=== PATIENT | female | born 1930 | race Caucasian/White ===

== ENCOUNTER 2019-09-08 11:15 | Emergency (ER) | payer MEDICARE, OTHER ==
--- OUTSIDE RECORDS SUMMARY | 2019-09-08 11:29 | XMS REPORT | Continuity of Care Document ---
:1930 External Reference #:[id number] Author Name Ernestine Elkins MD Address [address] [place] [address] Care Team Providers Name Role Phone Sun Varela MD - Family Medicine Care Team Information Communications Executive Ernestine Elkins MD - Family Medicine Care Team Information Communications Executive [phone] Problems Active Problems Provider Date [place] Onset: 04/11/2015 Congestion of nasal sinus Onset: 11/23/2014 Hyperlipidemia Onset: 06/17/2016 Benign essential hypertension Onset: 06/17/2016 Unspecified open-angle glaucoma, severe stage Ernestine Elkins MD Onset: 06/17 Legal blindness [facility] Ernestine Elkins MD Onset: 06/17/2016 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 Ernestine Elkins MD Onset: Thrombocytopenic disorder Ernestine Elkins MD Onset: 10/21/2016 Osteochondropathy Ernestine Elkins MD Onset: 10/21/2016 Pure hypercholesterolemia Ernestine Elkins MD Onset: 04/20/2017 Constipation Ernestine Elkins MD Onset: 04/20/2017 Multiple closed fractures of pelvis with Ernestine Elkins MD Onset: 10/23/2017 disruption of pelvic [place] Social History Type Date Description Comments Sex Unknown Tobacco Use Start: Unknown Never Smoked Cigarettes ETOH Use Currently consumes 1 DR/WK alcohol socially Tobacco Use Start: Unknown Patient denies history of smoking Recreational Drug Use Denies Drug Use Smoking Status Reviewed: 07/17/19 Patient denies history of smoking Enjoy Exercising Patient enjoys Is going to start exercising exercising more. Had inpatient rehab for broken left side of pelvis for almost a month. States she is feeling great now and will try to keep up her exercise program. Allergies, Adverse Reactions, Alerts Active Allergies Reaction Severity Comments Date Propafenone metallic taste 11/14/2018 Inactive Allergies NKDA 04/13/2015 Medications Active Medications SIG Qnty Indications Ordering Date Provider Furosemide take one tablet in 30tabs Ernestine Elkins, 01/14/2019 40mg am as needed for MD Tablets increased fluid retention. Osteo Bi-Flex 2 PO qd Ernestine Elkins, 07/18/2018 Advanced Triple MD Strength Tablets Mag-SR Plus Calcium 1 PO qd Ernestine Elkins, 07/18/2018 64-106mg Tablets Vitamin B12 1 by mouth once a 100tabs Ernestine Elkins, 07/18/2018 1000mcg day MD Tablets ER Preservision Areds 1 cap 2x/day in in 120caps Ernestine Elkins, 07/18/2018 the morning and at MD Capsules bedtime Atorvastatin Calcium take 1 tablet by 90tabs Ernestine Elkins, 06/06/2016 mouth Daily AT MD 10mg Tablets Supper For Cholesterol 5 days a week. Alphagan P 1 gtt both eyes Unknown 0.1% tid Solution Travatan Z instill 1 drop in 2.5units [place], 0.004% each eye every MD Marilee Solution evening Prednisolone Acetate 1 drop right eye 5ml Jodi Crenshaw, four times daily , OD 1% Suspension Amlodipine take 1 capsule by 90caps Ernestine Elknis, Besylate/Benazepril mouth once daily MD Hydrochloride 5-10mg Capsules Eliquis 1 tab by mouth 60tabs Kamini Sauer 2.5mg Tablets twice daily Gina, MSN, COMMUNITY NUTRITION EDUCATOR Vitamin D-3 3 by mouth every Unknown 1000Unit day Capsules Timolol Maleate morning and night Unknown 0.5% both eyes Solution Immunizations CPT Code Status Date Vaccine Lot # [id number] Given 05/18/2016 Influenza Virus Vaccine Split Virus Use For Individual 3Yr Older Q2038 Given 05/29/2015 Influenza Vaccine (Fluzone) Age 3 And Older 65205 Given 05/29/2015 Pneumococcal Conjugate Vaccine 13 Valent For Intramuscular Use Q2036 Given 06/20/2014 Influenza Vaccine 3 Years Of Age Or Older (Flulaval) Q2038 Given 05/13/2013 Influenza Vaccine (Fluzone) Age 3 And Older 36570 Given 05/13/2013 Pneumovax Injection Q2038 Given 05/04/2012 Influenza Vaccine (Fluzone) Age 3 And Older 46367 Given 05/04/2012 Zoster Vaccine Live Injection 21882 Given 07/07/2011 Td Preservative Free For Use In Individuals 7 Yrs Or Older 99197 Given 06/09/2011 flu vaccination 86342 Given 06/24/2010 flu vaccination 12261 Given 06/13/2009 flu vaccination 48938 Given 07/01/2008 flu vaccination 13526 Given 07/05/2007 flu vaccination 86791 Given 06/12/2006 flu vaccination 30868 Given 07/07/2005 Pneumovax Injection 84602 Given 07/07/2005 flu vaccination 75739 Given 01/11/2001 Tetnus Injection Vital Signs Date Vital Result Comment 07/17/2019 1:28pm BP Systolic Sitting Left Arm 128 mmHg BP Diastolic Sitting Left Arm 74 mmHg Body Temperature 98.6 F Heart Rate 74 /min Respiratory Rate 18 /min Height 64.5 inches 5'4.50" Weight 200.00 lb BMI (Body Mass Index) 33.8 kg/m2 BSA (Body Surface Area) 1.97 m2 [place] body weight in kilograms 56 kg O2 % BldC Oximetry 95 % 05/13/2019 10:34am BP Systolic 134 mmHg BP Diastolic 79 mmHg Body Temperature 98.8 F Heart Rate 70 /min Height 64.5 inches 5'4.50" Weight 199.00 lb BMI (Body Mass Index) 33.6 kg/m2 BSA (Body Surface Area) 1.96 m2 [place] body weight in kilograms 56 kg O2 % BldC Oximetry 97 % Results Test Acquired Date Facility Test Result H/L Range Note Urine Dipstick 07/17/2019 [facility] Leuko - Negative Ua Nitrite - Negative Ua Urobilinogen .2 0.2 - 1.0 E.U./dL Ua Protein - Negative Ua PH 6 Low 6.5-7.5 Ua Blood - Negative Ua Specific [place] 1.020 1.010-1.030 Ua Ketones - Negative Ua Bilirubin - Negative Ua Glucose - Negative Procedures Date Code Description Status 01/02/2019 [id number] Mammogram Completed 09/04/2016 [id number] Bone Mineral Density Test Completed 11/02/2015 [id number] Mammogram Completed 10/30/2014 [id number] Mammogram Completed 09/09/2013 [id number] Mammogram Completed Medical Devices Description No Information Available Encounters Type Date Location Provider Dx Diagnosis Office Visit 07/17/2019 Family Medicine Ernestine Elkins, Z00.00 Encntr for general 1:30p Ash NEAL MD adult medical exam w/o abnormal findings I10 Essential (primary) hypertension E78.5 Hyperlipidemia, unspecified I48.0 Paroxysmal atrial fibrillation H54.8 Legal blindness, as defined in [place] Office Visit 03/01/2019 1:20p Cardiology Office [place], I48.0 Paroxysmal atrial Marlyss B., PA fibrillation D69.6 Thrombocytopenia, unspecified I10 Essential (primary) hypertension E78.5 Hyperlipidemia, unspecified I35.0 Nonrheumatic aortic (valve) stenosis Assessments Date Code Description Provider 07/17/2019 Z00.00 Encounter for general adult medical Ernestine Elkins MD examination without abnormal findings 07/17/2019 I10 Essential (primary) hypertension Ernestine Elkins MD 07/17/2019 E78.5 Hyperlipidemia, unspecified Ernestine Elkins MD 07/17/2019 I48.0 Paroxysmal atrial fibrillation Ernestine Elkins MD 07/17/2019 H54.8 Legal blindness, as defined in [place] Ernestine Elkins MD 05/13/2019 I70.203 Unspecified atherosclerosis of [place] Eusebio Cormier DPM arteries of extremities, bilateral legs 05/13/2019 L60.3 Nail dystrophy Eusebio Cormier DPM 05/13/2019 M20.11 Hallux valgus (acquired), right foot Eusebio Cormier DPM 05/13/2019 M20.12 Hallux valgus (acquired), left foot Eusebio Cormier DPM 05/13/2019 M20.5x1 Other deformities of toe(s) (acquired), Eusebio Cormier DPM right foot 03/01/2019 I70.203 Unspecified atherosclerosis of [place] Eusebio Cormier DPM arteries of extremities, bilateral legs 03/01/2019 I48.0 Paroxysmal atrial fibrillation Evelyn Duncans B., PA 03/01/2019 D69.6 Thrombocytopenia, unspecified Peggy Duncanlyss B., PA 03/01/2019 L60.3 Nail dystrophy Eusebio Cormier DPM 03/01/2019 I10 Essential (primary) hypertension Ange Duncan, DAMIEN 03/01/2019 M20.12 Hallux valgus (acquired), left foot Eusebio Cormier DPM 03/01/2019 E78.5 Hyperlipidemia, unspecified Ange Duncan, DAMIEN 03/01/2019 M20.11 Hallux valgus (acquired), right foot Eusebio Cormier DPM 03/01/2019 I35.0 Nonrheumatic aortic (valve) stenosis Ange Duncan, DAMIEN 03/01/2019 M20.5x1 Other deformities of toe(s) (acquired), Eusebio Cormier DPM right foot Plan of Treatment Future Appointment(s):01/13/2020 10:45 am - Ernestine Elkins MD at [facility] RD04/01/2020 1:15 pm - Geena Mcclure MD at Cardiology Office Functional Status Functional Condition Comment Date Status Glasses Active Dependent with transportation Active Independent with all ADL's Active Dependent with cooking Active Dependent with housekeeping Active Dependent with reading Active Dependent with shopping Active Mental Status Description No Information Available Referrals Description No Information Available
[2019-09-08 11:50] VITALS: BP 117/62
--- NOTE | 2019-09-08 11:57 | UC ---
Respiratory Complaint HPI - HPI Summary HPI Summary: 89-year-old nonsmoking female who has had a cough for the past 2-3 days. She's had a low-grade fever. She did get a flu shot. She denies any other cold symptoms, no body aches or chills. - History of Current Complaint Chief Complaint: UCGeneralIllness Stated Complaint: COUGH,CONGESTION Time Seen by Provider: 09/08/19 11:56 Hx Obtained From: Patient ?: No Onset/Duration: Gradual Onset Timing: Intermittent Episodes Severity Initially: Mild Severity Currently: Mild Pain Intensity: 0 Character: Cough: Nonproductive Aggravating Factors: Nothing Alleviating Factors: Nothing Associated Signs And Symptoms: Positive: Negative - Allergies/Home Medications Allergies/Adverse Reactions: Allergies Allergy/AdvReac Type Severity Reaction Status Date / Time No Known Allergies Allergy Verified 09/08/19 11:50 Home Medications: Home Medications Apixaban* [Eliquis*] 2.5 mg PO BID 09/08/19 [History Confirmed 09/08/19] amLODIPine TAB* [Norvasc 5 mg TAB*] 5 mg PO DAILY 09/08/19 [History Confirmed ] PMH/Surg Hx/FS Hx/Imm Hx Previously Healthy: Yes - Surgical History Surgical History: Yes Surgery Procedure, Year, and Place: gallbladder removed 4 yrs ago - Family History Known Family History: Positive: Non-Contributory - Social History Occupation: Retired Alcohol Use: None Substance Use Type: None Smoking Status (MU): Never Smoked Tobacco Review of Systems All Other Systems Reviewed And Are Negative: Yes Constitutional: Positive: Fever - Low-grade fever over the past Respiratory: Positive: Cough - Nonproductive cough. Is Patient Immunocompromised?: No Physical Exam Triage Information Reviewed: Yes Appearance: Well-Appearing, No Pain Distress, Well-Nourished Vital Signs: Initial Vital Signs Temp 99.7 F 09/08/19 11:43 Pulse 78 09/08/19 11:43 Resp 17 09/08/19 11:43 BP 117/62 09/08/19 11:43 Pulse Ox 96 09/08/19 11:43 Vital Signs Reviewed: Yes Eyes: Positive: Conjunctiva Clear ENT: Positive: Pharynx normal, TMs normal, Uvula midline Neck: Positive: Supple, Nontender, No Lymphadenopathy Respiratory: Positive: Lungs clear, Normal breath sounds, No respiratory distress, No accessory muscle use Cardiovascular: Positive: RRR, No Murmur, Pulses Normal, Brisk Capillary Refill Musculoskeletal Exam: Normal Neurological Exam: Normal Psychological Exam: Normal Skin Exam: Normal Respiratory Course/Dx - Course Course Of Treatment: Chest x-ray: Indication: Cough, shortness of breath and fever. 2 views of the chest including dual energy PA views demonstrate no mediastinal shift. Heart is of normal size and configuration. Lung garcia are clear. IMPRESSION: No active cardiopulmonary disease is noted. I believe this point time this is viral upper respiratory illness and the patient is to follow-up with her primary care provider as needed especially if she continues to run a fever. - Differential Dx/Diagnosis Provider Diagnosis: URI (upper respiratory infection) Discharge ED - Sign-Out/Discharge Documenting (check all that apply): Patient Departure All imaging exams completed and their final reports reviewed: Yes - Discharge Plan Condition: Good Disposition: HOME Patient Education Materials: Upper Respiratory Infection (ED) Referrals: Ernestine Elkins MD [Primary Care Provider] - Additional Instructions: Increase fluids, follow-up with your primary care provider if you continue to have a fever over the next 2 or 3 days or for any worsening symptoms. - Billing Disposition and Condition Condition: GOOD Disposition: Home
== END 2019-09-08 12:31 | disposition home or self-care (01) ==
LOC: UCCORT 11:15
DX: J06.9 Acute upper respiratory infection, unspecified (principal)
CPT/HCPCS: 71046; 99201; G0463